=== PATIENT | male | born 1970 | race Caucasian/White ===

== ENCOUNTER → 2023-12-06 14:33 | Outpatient (REF) | payer BC, SELFPAY | LOC: RAD 14:33 | PROVIDERS: ATTENDING PHYSICIAN Physician Assistant | DX: M25.562 Pain in left knee (principal); M79.662 Pain in left lower leg; M25.552 Pain in left hip; M91.12 Juvenile osteochondrosis of head of femur [Legg-Calve-Perthes], left leg | CPT/HCPCS: 73502; 73564; 73590 ==

== ENCOUNTER 2025-01-16 07:28 | Inpatient (IN) | payer BC, SELFPAY ==
[2025-01-16] VITALS (10 sets, daily range): BP systolic 128–201; BP diastolic 79–116; BMI 32.6; BMI 31.7
--- NOTE | 2025-01-16 02:27 | ED.GENMED ---
History of Present Illness
<Shraddha Thomson PA-C - Last Filed: 01/16/25 06:28>
General
Chief Complaint: Musculo-Skeletal Complaint
Source: patient
Exam Limitations: none
Time Seen by Provider: 01/16/25 02:25
Nursing documentation reviewed up to this point in time: agreed with
History of Present Illness
History of Present Illness:
This is a 55-year-old male with a past medical history of GERD who presents emergency department today with concerns of left rib pain for the past few days. Patient reports that he was moving items out of his family member's house and doing a lot
of heavy lifting when he noted pain in his left anterior chest wall. He states that has been taking Tylenol has not been helping with his symptoms. Patient also notes that he has had intermittent shortness of breath with this recently as well. He
feels that the pain worsens when he takes a deep breath. He also notes some discomfort in the middle of his chest as well. Denies any dizziness lightheadedness or syncopal episodes. Denies any redness or swelling in his lower extremities. Denies
any recent long distance traveling recent hospitalizations. He denies any personal history of cardiac disease but states that his dad has had a heart attack but he is unsure at what age. Patient does not take any medication for his blood pressure.
Past History
<Shraddha Thomson PA-C - Last Filed: 01/16/25 06:28>
Past History
ED Past Medical History: GERD and Hypercholesterolemia
Social History
Tobacco: Non-smoker
Alcohol: None
Personal:
Living: with family
Employment: Employed ([employer], works from home)
Review of Systems
<Shraddha Thomson PA-C - Last Filed: 01/16/25 06:28>
Review of Systems
All Other Systems: ROS reviewed and negative except as documented in HPI and ROS
Phy Exam
<Shraddha Thomson PA-C - Last Filed: 01/16/25 06:28>
Physical Exam
Physical Exam:
General: Patient is well appearing and in no acute distress; non-toxic
Skin: Warm and dry, no rashes or lesions
Head: Normocephalic, atraumatic
Eyes: Sclera non-icteric. EOMs intact.
Cardiac: Tachycardia with regular rhythm, no murmurs
Peripheral Vascular: No lower extremity swelling or edema
Pulm: Normal respiratory effort, no wheezes, rales, rhonchi
Abdomen: No abdominal tenderness to palpation
Neuro: CN II-XII intact, no focal neurologic deficits.
Psychiatric: Appropriate mood and affect.
Course
<BERNABE Arciniega Last Filed: 01/16/25 06:28>
Orders/Labs/Results
Orders:
Orders
01/16/25 02:07
Electrocardiogram (*1) Urgent
Reason for Study: Abdominal Pain
EKG- Treatment ONCE
01/16/25 02:37
CR Ribs-left 3 Vw W/pa Chest Urgent
Comment:
Reason For Exam: left rib pain
01/16/25 02:38
Cardiac Monitoring- Treatment ONCE
01/16/25 02:39
Ibuprofen [Motrin] 600 mg PO NOW STA
01/16/25 02:58
Vital Signs- Treatment ONCE
Frequency: Once
01/16/25 03:32
Complete Blood Count/With Diff Urgent
Comprehensive Metabolic Panel Urgent
D-Dimer Urgent
Troponin I Urgent
01/16/25 04:35
CT Chest PE Study Urgent
Comment:
Reason For Exam: left sided chest pain, shortness of breath
01/16/25 05:38
Electrocardiogram (*1) Urgent
Reason for Study: Chest Pain
04/15/25 05:51
Add On- LAB Urgent
Tests Added?: pro-bnp
Troponin I Urgent
01/16/25 06:12
Heparin 8,500 units IV NOW STA
Pharmacy Request to Place See Dose Instructions PO NOW STA
Discontinue all Active Warfarin orders?: Yes
01/16/25 06:15
PTT Urgent
Comment: Obtain baseline before beginning heparin infusion if not already collected
Heparin 06540 Units/250 ml 25,000 units in 250 ml IV PER PROTOCOL
Weight to be used for heparin protocol in kilograms (kg):: 106
Protocol:: DVT/PE
PTT Goal Range to be used:: PTT 73 to 111 seconds
Order type:: Initial
INITIAL Infusion Dose (UNITS/KG/hr) & then follow protocol:: 18 units/kg/hr
Infusion Dose in UNITS/hr & then follow protocol (UNITS/hr):: 1,900
INFUSION RATE in mL/hr & then follow protocol (mL/hr):: 19
For DVT/PE algorithm, re-bolus for low PTT?: Yes
PTT less than or equal to 64 seconds:: Re-bolus 80 units/kg (max 10,000units). Increase by 400 units/hr
(+ 4mL/hr)
PTT 64.1 to 72.9 seconds:: Re-bolus 40 units/kg (max 5,000 units). Increase by 200 units/hr
(+ 2mL/hr)
PTT 73 to 111 seconds:: Target Range. No change in rate.
PTT 111.1 to 130.9 seconds:: Decrease rate by 200 units/hr (- 2 mL/hr)
PTT 131 to 199.9 seconds:: HOLD for 1 hr. Then decrease by 300 units/hr (- 3mL/hr)
PTT greater than or equal to 200 seconds:: HOLD for 2 hrs & Notify Provider. Then decrease by 400 units/hr
(- 4mL/hr)
Lab follow-up:: Each change, PTT q6h until 2 consecutive are therapeutic. Then
PTT daily.
Nursing to Place Non Medication Order As Directed
Physician Order: PTT 6 hours after initial start of Heparin infusion
01/16/25 06:20
Add On- LAB Urgent
Tests Added?: PTT
01/16/25 07:00
Flush (0.9% Sodium Chloride) [Flush (Nss)] See Dose Instructions IV PER PROTOCOL
Pharmacy Request to Place See Dose Instructions IV DIRECTED
Abnormal Lab Results
01/16/25
03:32
Absolute Monos (auto) 0.7 H 10^3/uL
(0.1-0.6)
D-Dimer 1.35 H ug/mlFEU
(0.00-0.50)
Glucose 118 H mg/dl
(70-99)
AST 60 H U/L
(17-59)
ALT 72 H U/L
(0-50)
Troponin I 0.075 H* ng/ml
01/16/25 03:32
01/16/25 03:32
Vital Signs
Initial and Last Documented VS:
Initial Vital Signs
Temp Pulse Resp BP Pulse Ox
97.9 F 116 26 201/116 99
01/16/25 01:47 01/16/25 01:47 01/16/25 01:47 01/16/25 01:47 01/16/25 01:47
Last Documented Vital Signs
Temp Pulse Resp BP Pulse Ox
97.9 F 78 18 142/95 97
01/16/25 01:47 01/16/25 06:00 01/16/25 06:00 01/16/25 04:31 01/16/25 06:00
Perezlt;Mynor Camacho, DO - Last Filed: 01/16/25 06:08>
Orders/Labs/Results
Orders:
Orders
01/16/25 02:07
Electrocardiogram (*1) Urgent
Reason for Study: Abdominal Pain
EKG- Treatment ONCE
01/16/25 02:37
CR Ribs-left 3 Vw W/pa Chest Urgent
Comment:
Reason For Exam: left rib pain
01/16/25 02:38
Cardiac Monitoring- Treatment ONCE
01/16/25 02:39
Ibuprofen [Motrin] 600 mg PO NOW STA
01/16/25 02:58
Vital Signs- Treatment ONCE
Frequency: Once
01/16/25 03:32
Complete Blood Count/With Diff Urgent
Comprehensive Metabolic Panel Urgent
D-Dimer Urgent
Troponin I Urgent
01/16/25 04:35
CT Chest PE Study Urgent
Comment:
Reason For Exam: left sided chest pain, shortness of breath
01/16/25 05:38
Electrocardiogram (*1) Urgent
Reason for Study: Chest Pain
01/16/25 05:51
Add On- LAB Urgent
Tests Added?: pro-bnp
Troponin I Urgent
01/16/25 06:12
Heparin 8,500 units IV NOW STA
Pharmacy Request to Place See Dose Instructions PO NOW STA
Discontinue all Active Warfarin orders?: Yes
01/16/25 06:15
PTT Urgent
Comment: Obtain baseline before beginning heparin infusion if not already collected
Heparin 08423 Units/250 ml 25,000 units in 250 ml IV PER PROTOCOL
Weight to be used for heparin protocol in kilograms (kg):: 106
Protocol:: DVT/PE
PTT Goal Range to be used:: PTT 73 to 111 seconds
Order type:: Initial
INITIAL Infusion Dose (UNITS/KG/hr) & then follow protocol:: 18 units/kg/hr
Infusion Dose in UNITS/hr & then follow protocol (UNITS/hr):: 1,900
INFUSION RATE in mL/hr & then follow protocol (mL/hr):: 19
For DVT/PE algorithm, re-bolus for low PTT?: Yes
PTT less than or equal to 64 seconds:: Re-bolus 80 units/kg (max 10,000units). Increase by 400 units/hr
(+ 4mL/hr)
PTT 64.1 to 72.9 seconds:: Re-bolus 40 units/kg (max 5,000 units). Increase by 200 units/hr
(+ 2mL/hr)
PTT 73 to 111 seconds:: Target Range. No change in rate.
PTT 111.1 to 130.9 seconds:: Decrease rate by 200 units/hr (- 2 mL/hr)
PTT 131 to 199.9 seconds:: HOLD for 1 hr. Then decrease by 300 units/hr (- 3mL/hr)
PTT greater than or equal to 200 seconds:: HOLD for 2 hrs & Notify Provider. Then decrease by 400 units/hr
(- 4mL/hr)
Lab follow-up:: Each change, PTT q6h until 2 consecutive are therapeutic. Then
PTT daily.
Nursing to Place Non Medication Order As Directed
Physician Order: PTT 6 hours after initial start of Heparin infusion
01/16/25 06:20
Add On- LAB Urgent
Tests Added?: PTT
01/16/25 07:00
Flush (0.9% Sodium Chloride) [Flush (Nss)] See Dose Instructions IV PER PROTOCOL
Pharmacy Request to Place See Dose Instructions IV DIRECTED
Abnormal Lab Results
01/16/25
03:32
Absolute Monos (auto) 0.7 H 10^3/uL
(0.1-0.6)
D-Dimer 1.35 H ug/mlFEU
(0.00-0.50)
Glucose 118 H mg/dl
(70-99)
AST 60 H U/L
(17-59)
ALT 72 H U/L
(0-50)
Troponin I 0.075 H* ng/ml
01/16/25 03:32
01/16/25 03:32
Vital Signs
Initial and Last Documented VS:
Initial Vital Signs
Temp Pulse Resp BP Pulse Ox
97.9 F 116 26 201/116 99
01/16/25 01:47 01/16/25 01:47 01/16/25 01:47 01/16/25 01:47 01/16/25 01:47
Last Documented Vital Signs
Temp Pulse Resp BP Pulse Ox
97.9 F 78 18 142/95 97
01/16/25 01:47 01/16/25 06:00 01/16/25 06:00 01/16/25 04:31 01/16/25 06:00
<Shraddha Thomson PA-C - Last Filed: 01/16/25 06:28>
MDM/Problems Addressed
Differential Diagnosis Includes:
Differentials include muscle strain, rib contusion, costochondritis, ACS, PE
MDM/Problems Addressed:
This is a 55-year-old male with a past medical history of GERD who presents emergency department today with concerns of left rib pain for the past few days. Patient reports that he was moving items out of his family member's house and doing a lot
of heavy lifting when he noted pain in his left anterior chest wall. He is tachycardic and acutely hypertensive upon arrival to the emergency department. His D-dimer was found to be elevated. CT scan of the chest reveals slightly irregular.
Lobar segmental PEs in the left lower lobe with possible small segmental PE in the right lower lobe as well with no evidence of right heart strain as well as a rounding filling defect in LV apex. Concerning for acute versus chronic PE with ACS,
heparin initiated, case reviewed with attending who also evaluated patient at bedside as well. Case discussed with house for admission.
<Shraddha Thomson PA-C - Last Filed: 01/16/25 06:28>
*Pulse Oximetry
Patient hypoxic: no
*EKG
Interpreted by ED Provider?: Yes
EKG Intrepretation Date: 01/16/25
Interpretation: abnormal
Comparison EKG: changes noted (New T wave inversion in lateral leads)
Heart Rate: 79
Rate: normal
Rhythm: sinus
[place]: normal axis
Interval: normal interval
*Critical Care Note
Total Time (30-74mins, 75-104mins- exclusive of procedures): Not Applicable
Data Reviewed
Review of Other/Old Records Reveals: Records (Reviewed ER physician documentation from 02/24/2022 patient seen for acute diverticulitis of the intestine)
Source: patient and records
<Shraddha Thomson PA-C - Last Filed: 01/16/25 06:28>
Patient Management
Discussion with other providers: Hospitalist
Escalation/DeEscalation of care consider admission/obs:
Admit indicated
ED Attending Note
<Shraddha Thomson PA-C - Last Filed: 01/16/25 06:28>
-
Portions of this chart may have been created with voice recognition software.� Occasional wrong word or��sound alike� substitutions may have occurred due to the inherent limitations of voice recognition software.
<Mynor Camacho DO - Last Filed: 01/16/25 06:08>
ED Attending Note
Patient seen and examined by attending physician: Yes
I performed the substantive portion of visit, reviewed & personally made and approve the management plan that is documented in note by myself or VALERIE.: Yes
ED Attending Note:
Seen with PA examined independently agree with assessment and plan pleuritic sharp left-sided pain moving boxes EKG noted Trope D-dimer noted will start on unfractionated heparin,
Discharge Plan
Departure
Patient Disposition: Admit
Date of Disposition: 01/16/25
Time of Disposition: 06:20
Admit to: Med/Surg
Presentation/result/management discussed w/ accepting MD/DO: Hospitalist
Patient with high blood pressure during this ER visit?: Yes
Condition: Fair
Discharge Problem:
Pulmonary embolism
Prescriptions:
No Action
omeprazole [Prilosec] 40 MG capsule,delayed release(DR/EC)
40 mg PO DAILY
levofloxacin 500 MG tablet
500 mg PO DAILY Qty: 10 0RF
metronidazole 500 MG tablet
500 mg PO Q8 Qty: 30 0RF
hydrocodone-acetaminophen 1 TABLET tablet
1 tab PO Q4HPRN PRN (Reason: severe pain) Qty: 10 0RF
Referrals:
Lor Sexton MD [Family Provider] -
Interventions
Interventions:
*Risk Screen - Suicide Last Done: 01/16/25 01:47
*General Assessment Last Done: 01/16/25 03:10
*Neglect/Abuse Screening Last Done: 01/16/25 01:47
*ED- Fall Risk Assessment Last Done: 01/16/25 03:10
*ED COVID-19 Vaccine History Last Done: 01/16/25 03:10
ED-Musculoskeletal Assessment Last Done: 01/16/25 03:38
Discharge Date and Time
Print Language: ARMENIAN
[2025-01-16] MEDS: MOTRIN 600 MG PO (03:07)
[2025-01-16 03:39] LABS: % Basophils 0.6 % (0-2); % Eosinophils 3.1 % (0-6); % Immature Granulocytes 0.3 % (0-0.5); Absolute Basophils 0.1 10^3/uL (0-0.2); Absolute Eosinophils 0.3 10^3/uL (0-0.7); Absolute Monocytes 0.7 10^3/uL (0.1-0.6); Hematocrit 47.1 % (39.0-52.0); Hemoglobin 16.2 g/dL (13.0-18.0); Mean Corp Hgb Conc. 34.4 g/dL (33.0-37.0); Mean Corpuscular Hgb 30.4 pg (27.0-31.0); Mean Corpuscular Volume 88.4 fL (80.0-94.0); Nucleated Red Blood Cells % 0 % (-); Platelet Count 209 10^3/uL (130-400); Red Blood Cell Count 5.33 10^6/uL (4.70-6.10); Red Cell Dist. Width 12.5 % (11.5-14.5); White Blood Cell Count 9.1 10^3/uL (4.8-10.8)
[2025-01-16 03:53] LABS: D-Dimer 1.35 ug/mlFEU (0.00-0.50)
[2025-01-16 04:04] LABS: ALT (SGPT) 72 U/L (0-50); AST (SGOT) 60 U/L (17-59); Albumin 4.7 g/dl (3.5-5.0); Alkaline Phosphatase 117 U/L (38-126); Blood Urea Nitrogen 15 mg/dl (9-20); Carbon Dioxide 25 mmol/L (22-30); Chloride 104 mmol/L (98-107); Estimated Creatinine Clearance > 125 ml/min; Glucose 118 mg/dl (70-99); Potassium 4.2 mmol/L (3.5-5.1); Sodium 140 mmol/L (135-145); Total Bilirubin 0.6 mg/dl (0.2-1.3); Total Protein 8.2 g/dl (6.3-8.2); eGFR > 60.00
[2025-01-16 04:30] LABS: Troponin I 0.075 ng/ml
[2025-01-16] MEDS: HEPARIN 8500 UNITS IV (06:30)
[2025-01-16] MEDS: HEPARIN 25000 UNITS/250 ML IV ×2 (06:33→20:18)
[2025-01-16] MEDS: FLUSH (NSS) 1 FLUSH IV (06:37)
--- NOTE | 2025-01-16 06:37 | HPS.HSE ---
Family Physician
-
Family Physician: Lor Sexton
Chief Complaint
-
Left-sided chest/rib pain
History of Present Illness
This is a 55-year-old with past medical history includes gastritis history of gallstones s/p cholecystectomy presenting to the emergency department with worsening left-sided chest pain.
Patient reported that few days ago he was traveling to [place] multiple times. He drove 6 hours home 2 days and 3 hours on 1 day [id number] to move furniture. After remove the patient developed left-sided pain which he thought was
musculoskeletal. He was able to manage without any significant shortness of breath or dyspnea on exertion exertion until about 2 days ago when he noted some minor rhinorrhea and cough as well as some shortness of breath which he attributed to upper
respiratory infection. He did not have any fevers or chills.
Today he started noticing more severe sharp pain on his left-sided axillary thoracic region. This was nonradiating. He felt that he might have pulled a muscle. However since it was not improving he said to come to the Emergency Department for
evaluation. Found to have a pulmonary embolus in the left lower lobe.
Patient denies family history of bleeding or clotting disorders. Other than the recent travels he had no other risk factors. There is a possible cold-like episode about 2 days ago and he was not tested for COVID. He denies any lower extremity
swelling. He denies any calf tenderness.
On arrival he was afebrile, blood pressure was 140/95 pulse rate 78 satting 98% on room air. CBC was completely normal. Electrolytes BUN/creatinine were normal. Glucose was normal. He had a ECG which showed normal sinus rhythm with T wave
inversions in the lateral leads. His troponin was 0.075. Repeat was 0.08.
Chest x-ray shows no rib fracture and no consolidation. CT of the chest to with PE protocol was positive for a left lower lobe pulmonary emboli, no cardiac strain. There was a cardiac filling defect in the LV.
Medical History
Past Medical History
Past Medical History: Reports GERD
Additional Past Medical History:
History of diverticulitis
Past Surgical History: Reports Cholecystectomy
Social History
Tobacco: Non-smoker
Alcohol: None
Drug: None
Personal:
Living: With Family
Employment: Employed
Family History
Family History: CAD
Allergies / Home Medications
Allergies reflects when Allergies were last updated in [employer].
Home Medications with original date entered in [employer]
Allergy/Medication List:
Allergies
Allergy/AdvReac Type Severity Reaction Status Date / Time
No Known Allergies Allergy Verified 01/16/25 01:50
Home Medications
omeprazole 40 mg capsule,delayed release (Prilosec) 40 mg PO DAILY 01/31/10
Review of Systems
-
History Source: Patient
Constitutional: Reports No Symptoms
EENT: Reports No Symptoms
Respiratory: Reports No Symptoms
Cardiac: Reports Chest Pain
Abdomen/GI: Reports No Symptoms
: Reports No Symptoms
Musculoskeletal: Reports No Symptoms
Skin: Reports No Symptoms
Neurological: Reports No Symptoms
Endocrine: Reports No Symptoms
Hematologic/Lymphatic: Reports No Symptoms
Psych: Reports No Symptoms
Physical Exam
Vital Signs
Vital Signs
Temp Pulse Resp BP Pulse Ox
97.9 F 78 18 142/95 97
01/16/25 01:47 01/16/25 06:00 01/16/25 06:00 01/16/25 04:31 01/16/25 06:00
Physical Exam
General: Well Developed, Well Nourished, No Apparent Distress and Comfortable
HEENT: NormoCephalic, Anicteric, Moist mucous membranes and Atraumatic
Respiratory: Clear
Cardiac: S1/S2 and Regular Rhythm
GI: Soft, Non Tender, Non Distended and Normal Bowel Sounds
Rectal: Deferred by Provider
Genito-urinary: Deferred by me
Musculoskeletal: No Clubbing, No Cyanosis and No Edema
Neuro: AO x 3 and Nonfocal/grossly intact
Hematologic/Lymphatic: No Lymphadenopathy
Psych: Calm
Laboratory Results
-
01/16/25 03:32
01/16/25 03:32
Laboratory Results
Total Bilirubin 0.6 mg/dl (0.2-1.3) 01/16/25 03:32
AST 60 U/L (17-59) H 01/16/25 03:32
ALT 72 U/L (0-50) H 01/16/25 03:32
Alkaline Phosphatase 117 U/L (38-126) 01/16/25 03:32
Troponin I 0.080 ng/ml H* 01/16/25 05:51
Data Reviewed
-
Diagnostic Radiology: Image Personally Visualized and interpreted
CT Scan: Report Reviewed by me
Medical Tests (Nuc Med, Echo, EKG etc): Image Personally Visualized and interpreted
Lab Data: Labs Reviewed by me
Old Records: Reviewed
Impression/Plan
-
IMPRESSION:
Pulmonary embolism with left-sided chest pain. Patient has a left lower lobe 12 pulmonary emboli. No RV strain on CT scan. Has slight elevation in troponin to 0.08. More prominent T wave inversions in the lateral leads compared to prior. He is
hemodynamically stable. He has no oxygen requirement. Patient complicated by a filling defect in the LV on CT scan.
PLAN:
Pulmonary embolus - Submassive by elevated troponin, well appearing patient, HD stable and not requiring oxygen. Pain well controlled.
- admit to telemetry
- given troponin and LV defect possibly thrombus, will continue on heparin gtt for now
- trend trops
- previus echo was normal 2 yrs ago, will repeat echo for LV evaluation and possibly may need bubble study
- cardiology consult for LV filling defect.
- check covid
- if no covid, then PE could have been provoked by the prolonged driving trips, will suggest some predisposition to clots and will need longer term ac, consider hematology consult
Code status - Full Code
[2025-01-16 07:12] LABS: APTT 25.2 Sec (23.4-35.0)
[2025-01-16 07:49] LABS: NT-proBNP 1480 pg/ml
[2025-01-16 08:12] LABS: COVID-19 Antigen Negative (Negative)
--- NOTE | 2025-01-16 09:05 | CARDSERVLU ---
Echocardiogram with [facility]ason completed after protocol screening completed. Allergies verified.
Patent IV site: _Left antecubital site clear____
IV site flushed with 0.9% NaCl pre and post administration.
Diluted bolus method utilized to enhance visualization of ventricular robles.
Total volume given: _3___ mL
Patient tolerated all procedures well without complications.
[2025-01-16] MEDS: PROTONIX 40 MG PO (09:31)
--- NOTE | 2025-01-16 09:49 | CON.CAR ---
Consultation
Consultation Request
Date/Time Consultation Requested: 01/16/25, 7am
Date/Time Consultation Performed: 01/16/25, 930am
Requesting Provider: Renetta
Performing Provider: Omid
Reason for Consultation: PE, elevated troponin
Medical History
-
Chief Complaint: chest pain
History of Present Illness:
55 yo male with PMH of obesity, GERD presents to ED with chest pain. Found to have acute PE. We are consulted for abnormal troponin, and possible LV filling defect on CT.
He has history of recent long car rides. Then developed chest pain, cough, SOB and presented to ED.
Past Medical History
Past Medical History: GERD and Other (obesity)
Past Surgical History: Cholecystectomy
Social History
Tobacco: Non-Smoker
Family History
Family History: CAD (grandfather) and Other (great aunt 'on blood thinner')
Allergies / Home Medications
Allergy/AdvReac Type Severity Reaction Status Date / Time
No Known Allergies Allergy Verified 01/16/25 01:50
�Medication �Instructions �Recorded �Confirmed �Type
biotin 10,000 mcg chewable tablet 10,000 mcg PO DAILY 01/16/25 01/16/25 History
(Hair, Skin and Nails (biotin))
therapeutic multivitamin 1 tab PO DAILY 01/16/25 01/16/25 History
Review of Systems
-
All other systems: Negative unless noted
Respiratory: Cough and Trouble Breathing
Cardiac: Chest Pain
Physical Exam
Vital Signs
Temp Pulse Resp BP Pulse Ox
98.2 F 88 24 153/88 97
01/16/25 09:14 01/16/25 07:00 01/16/25 07:00 01/16/25 07:00 01/16/25 07:00
Lab Results
01/16/25 03:32
01/16/25 03:32
Troponin I 0.080 ng/ml H* 01/16/25 05:51
Otk-L-Lgyupxpoaaw Pept 1480 pg/ml 01/16/25 05:51
Physical Exam
General: No Apparent Distress and Comfortable
HEENT: Normocephalic and Anicteric
Respiratory: Clear and Non Labored Respirations
Cardiac: S1/S2 (normal), Regular Rhythm, Murmur (none), Peripheral Edema (none), Calf Tenderness (none) and JVD (none)
Musculoskeletal: No Clubbing, No Cyanosis and No Edema
Skin: Warm and Dry
Neuro: AO x 3
Psych: Calm
Impression / Plan
-
55 yo male with PMH of obesity, GERD presents to ED with chest pain. Found to have acute PE. We are consulted for abnormal troponin, and possible LV filling defect on CT.
# Acute PE
-severe, threat to life, requiring hospital admission
-anticoagulation currently with heparin drip
-requires monitor of Hgb
-eventual transition to OAC
# LV filling defect
-echo with contrast to assess for LV thrombus
-if has both PE and LV thrombus, will need hypercoagulable work up
# Elevated troponin
-likely acute non-ischemic myocardial injury in setting of acute PE
-0.08
-trend to peak
-echo
# Elevated blood pressure
-trend: may have new diagnosis of HTN
# Obesity
CT chest 01/16/25
1. Positive for segmental and subsegmental emboli within the left lower lobe pulmonary arteries, and within a subsegmental right lower lobe pulmonary artery. No evidence of right heart strain.
2. Rounded filling defect near the LV apex, measuring 1.8 cm in diameter, new compared to prior CT abdomen and pelvis dated 02/24/2022. Consider echocardiogram for further characterization.
Data Reviewed
-
EKG: Tracing Personally Visualized and interpreted (NSR, anterolateral TWI) and Other (Tele: SR 90s)
CT Scan: Report Reviewed by me (1. Positive for segmental and subsegmental emboli within the left lower lobe pulmonary arteries, and within a subsegmental right lower lobe pulmonary artery. No evidence of right heart strain. 2. Rounded filling
defect near the LV apex, measuring 1.8 cm in diameter, new compared to prior CT abdomen )
Labs: Labs Reviewed by me
--- NOTE | 2025-01-16 10:31 | PTCARENOTE ---
Pt says all symptoms have resolved. Denies chest or rib pain. Breathing unlabored. VSS. Heparin gtt infusing at 1900 units/hr.
--- NOTE | 2025-01-16 11:51 | CON.ONC ---
Impression
Impression
evie PEs
left ventricle thrombus
recent car travel to and from [place] twice (3hr each way)
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
Plan
Plan
Discussed the need for anticoagulation, at least 3 months
Unclear if recent car travel could have provoked his PEs, though etiology of LV thrombus is unknown (no evidence for FL, EF is normal)
Will check LE dopplers and antiphosholipid Ab testing (which will take several days)
Can transition to eliquis when nearing discharge, though would switch to warfarin if testing suggest APL syndrome
Outpatient heme f/u in ~3 months to complete thrombophilia testing and consider duration of therapy
We'll follow along while hospitalized
Patient History
History of Present Illness
This is a 55yo who presented early this am with left sided chest and flank pain, and mild dyspnea.
He had driven (3hr) back and forth to [place] twice last week, helping his aunt move heavy furniture and pack up after the of his uncle. He denies any leg pain or swelling.
CTA showed bilateral PEs and a 1.8cm thrombus in the LV apex, which was confirmed on echocardiogram. No RV dysfunction.
He's been started on heparin.
He has a remote h/o left hip surgery in childhood due to Rhsk-Minjd-Kppmnth disease.
He's UTD on colonoscopy, 2018.
He's sedentary. His PMD is Lady Sexton.
COVID negative.
Past-Medical/Surgical History
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
SH - non smoker, drinks no alcohol,
FH - blood clot in aunt (arterial?)
Patient Medication
�Medication �Instructions �Recorded �Confirmed �Last Taken �Type
biotin 10,000 mcg chewable tablet 10,000 mcg PO DAILY 01/16/25 01/16/25 Unknown History
(Hair, Skin and Nails (biotin))
therapeutic multivitamin 1 tab PO DAILY 01/16/25 01/16/25 Unknown History
Active Medications
Generic Name Dose Route Start Last Admin
Trade Name Freq PRN Reason Stop Dose Admin
Acetaminophen 650 mg 01/16/25 08:03
Acetaminophen 325 Mg Tablet PO 02/13/25 08:02
Q4HPRN PRN
mild pain/temp > 100.4 F
Heparin Sodium 8,500 units 01/16/25 06:24
Heparin 80 Units/Kg Rebolus-Do Not Discard IV 02/13/25 06:23
PRN PRN
PTT < OR = 64 seconds
Heparin Sodium 4,200 units 01/16/25 06:25
Heparin 40 Units/Kg Rebolus-Do Not Discard IV 02/13/25 06:24
PRN PRN
PTT = 64.1 to 72.9 seconds
Hydromorphone HCl 0.5 mg 01/16/25 08:03
Hydromorphone 0.5 Mg/0.5 Ml Syringe IV 01/30/25 08:02
Q4HPRN PRN
severe pain
Heparin Sodium 25,000 units in 250 mls @ 0 mls/hr 01/16/25 06:15 01/16/25 06:33
Heparin 58864 Units/250 Ml IV 250 mls
PER PROTOCOL VICTOR M Administration
Protocol
Per Protocol
Morphine Sulfate 2 mg 01/16/25 08:03
Morphine 2 Mg/Ml Syringe IV 01/30/25 08:02
Q4HPRN PRN
moderate pain
Pantoprazole Sodium 40 mg 01/16/25 08:03 01/16/25 09:31
Pantoprazole 40 Mg Delayed Release Tablet PO 02/13/25 08:02 40 mg
DAILY VICTOR M Administration
Sodium Chloride 0 flush 01/16/25 07:00 01/16/25 06:37
Sodium Chloride 0.9% (Flush) Syringe IV 02/13/25 06:59 1 flush
PER PROTOCOL VICTOR M Administration
Physical Exam
-
General: Well Developed, Well Nourished and No Apparent Distress
HEENT: Negative Jaundice
Cardiology: Normal Sinus Rhythm
GI: Soft and Normal Bowel Sounds
Musculoskeletal: No Clubbing, No Cyanosis and No Edema
Extremities: No C/C/E
Neurology: Non Focal, No Lateralizing Symptoms and No Word Finding Difficulty
Skin: Warm and Dry
Psych: Calm and Intact Judgement/Insight
Labs
Lab Results
WBC 9.1 10^3/uL (4.8-10.8) 01/16/25 03:32
RBC 5.33 10^6/uL (4.70-6.10) 01/16/25 03:32
Hgb 16.2 g/dL (13.0-18.0) 01/16/25 03:32
Hct 47.1 % (39.0-52.0) 01/16/25 03:32
MCV 88.4 fL (80.0-94.0) 01/16/25 03:32
MCH 30.4 pg (27.0-31.0) 01/16/25 03:32
MCHC 34.4 g/dL (33.0-37.0) 01/16/25 03:32
RDW 12.5 % (11.5-14.5) 01/16/25 03:32
Plt Count 209 10^3/uL (130-400) 01/16/25 03:32
MPV 10.0 fL (7.4-10.4) 01/16/25 03:32
Abs Immat Gran (auto) 0.0 10^3/uL (0-0.05) 01/16/25 03:32
Absolute Neuts (auto) 6.0 10^3/uL (1.4-6.5) 01/16/25 03:32
Absolute Lymphs (auto) 2.0 10^3/uL (1.2-3.4) 01/16/25 03:32
Absolute Monos (auto) 0.7 10^3/uL (0.1-0.6) H 01/16/25 03:32
Absolute Eos (auto) 0.3 10^3/uL (0-0.7) 01/16/25 03:32
Absolute Basos (auto) 0.1 10^3/uL (0-0.2) 01/16/25 03:32
Immature Gran % 0.3 % (0-0.5) 01/16/25 03:32
Neutrophils % 66.0 % (42.2-75.2) 01/16/25 03:32
Lymphocytes % 22.0 % (20.5-51.1) 01/16/25 03:32
Monocytes % 8.0 % (1.7-9.3) 01/16/25 03:32
Eosinophils % 3.1 % (0-6) 01/16/25 03:32
Basophils % 0.6 % (0-2) 01/16/25 03:32
Creatinine 0.8 mg/dL (0.7-1.3) 01/16/25 03:32
Vital Signs
Vital Signs
Temp Pulse Resp BP Pulse Ox
98.2 F 88 24 153/88 98
01/16/25 09:14 01/16/25 07:00 01/16/25 07:00 01/16/25 07:00 01/16/25 10:28
[2025-01-16 12:28] LABS: APTT 102.2 Sec (23.4-35.0)
[2025-01-16 12:45] LABS: Troponin I 0.067 ng/ml
--- NOTE | 2025-01-16 13:19 | W.PN.HOSP.TC ---
Today's Communication/Plan
-
Lower extremity Doppler pending
Assessment / Plan
Assessment / Plan
Impression:
Patient is a pleasant 55 years old with past medical history for gallstone and gastritis came to the ER with worsening left-sided chest pain found to have bilateral PE and also evidence of LV thrombosis, echocardiogram done which confirmed LV
thrombosis, seen by cardiology and hematology.
Currently on heparin drip.
Assessment/plan
Acute submassive PE.
Patient presented with chest pain.
Elevated troponin.
Elevated BNP.
Hemodynamically stable not requiring oxygen.
Chest pain improved.
Started on heparin drip.
Hematology consulted, consider Eliquis on discharge.
Follow-up with hematology as OP
Hypercoagulable workup pending
Bilateral extremity Doppler pending
LV thrombus:
Echocardiogram shows:
Normal biventricular size and systolic function without regional wall motion
abnormality. Estimated LVEF 55-60%.
LV apical clot approximately (1.7cm x 1.3cm).
Normal right ventricular size and function.
Trace tricuspid regurgitation. Normal PASP.
Appreciate cardiology input.
Continue anticoagulation
CODE STATUS: Full code
DVT prophylaxis: Heparin
Diet: Regular diet
Total time spent on today's encounter was 65 minutes which included time spent in counseling the patient/family regarding diagnosis and treatment plan as listed above, goals of care, and symptom management. Case was discussed with nursing staff,
specialists, and care coordinators/case management. All labs and imaging personally reviewed by me. Remainder the time spent in detailed review of previous records, lab data, imaging, and other medical provider documentation.
Anticipated Discharge: Within 24 hours
Subjective/Interval History
-
Date of Service: January 16, 2025
Patient seen and examined at bedside, denies any chest pain or shortness of breath, no abdominal pain, no nausea, no vomiting, no diarrhea or constipation.
Discussed echo result with the patient.
Hematology consulted.
Objective Data
-
Labs:
Laboratory Results
01/16/25 01/16/25 01/16/25
03:32 06:15 12:07
WBC 9.1
Hgb 16.2
Hct 47.1
Plt Count 209
APTT 25.2 Cancelled 102.2 H
Sodium 140
Potassium 4.2
Chloride 104
Carbon Dioxide 25
BUN 15
Creatinine 0.8
Glucose 118 H
Calcium 9.0
Total Bilirubin 0.6
AST 60 H
ALT 72 H
Alkaline Phosphatase 117
01/16/25
18:30
WBC
Hgb
Hct
Plt Count
APTT Pending
Sodium
Potassium
Chloride
Carbon Dioxide
BUN
Creatinine
Glucose
Calcium
Total Bilirubin
AST
ALT
Alkaline Phosphatase
Vital Signs:
Vital Signs
Temp Pulse Resp BP Pulse Ox
97.9 F 83 16 166/98 98
01/16/25 13:02 01/16/25 13:02 01/16/25 13:02 01/16/25 13:02 01/16/25 13:02
Physical Exam
-
General: Well Developed, Well Nourished, No Apparent Distress and Comfortable
HEENT: Normocephalic, Atraumatic, Moist Mucous Membranes, No Ptosis, PERRLA and Nose Appears Normal
Respiratory: Clear to Auscultation and Non Labored Respirations
Cardiac: Regular Rhythm and S1/S2
Breast: Deferred by me
GI: Soft, Nontender, Nondistended and Normal Bowel Sounds
Genito-urinary: No Costovertebral Tender
Musculoskeletal: No Clubbing, No Cyanosis and No Edema
Skin: Warm
Neuro: Awake, Alert, Oriented, AO x 3 and No Motor Deficits
Psych: Calm
Data Reviewed
-
Diagnostic Radiology: Image personally visualized and interpreted and Report Reviewed by me
CT Scan: Image personally visualized and interpreted and Report Reviewed by me
Ultrasound: Image personally visualized and interpreted and Report Reviewed by me
MRI: Image personally visualized and interpreted and Report Reviewed by me
Medical Tests (Nuc Med, Echo etc): Image personally visualized and interpreted and Report Reviewed by me
Labs: Labs Reviewed by me
Old Records: Reviewed
[2025-01-16] MEDS: NORVASC 5 MG PO (14:59)
[2025-01-16 19:08] LABS: APTT 87.4 Sec (23.4-35.0)
[2025-01-17 03:00] VITALS: BP 129/84
[2025-01-17 06:40] LABS: Hematocrit 44.7 % (39.0-52.0); Hemoglobin 15.8 g/dL (13.0-18.0); Mean Corp Hgb Conc. 35.3 g/dL (33.0-37.0); Mean Corpuscular Hgb 30.6 pg (27.0-31.0); Mean Corpuscular Volume 86.5 fL (80.0-94.0); Mean Platelet Volume 9.8 fL (7.4-10.4); Platelet Count 228 10^3/uL (130-400); Red Blood Cell Count 5.17 10^6/uL (4.70-6.10); Red Cell Dist. Width 12.6 % (11.5-14.5); White Blood Cell Count 13.2 10^3/uL (4.8-10.8)
[2025-01-17 06:45] LABS: APTT 80.3 Sec (23.4-35.0)
[2025-01-17 07:54] LABS: Blood Urea Nitrogen 13 mg/dl (9-20); Calcium 9.2 mg/dl (8.4-10.2); Carbon Dioxide 22 mmol/L (22-30); Chloride 106 mmol/L (98-107); Estimated Creatinine Clearance > 125 ml/min; Glucose 102 mg/dl (70-99); Potassium 4.3 mmol/L (3.5-5.1); Sodium 140 mmol/L (135-145); eGFR > 60.00
--- NOTE | 2025-01-17 08:02 | W.PN.ONC2 ---
Today's Communication / Plan
-
Transition to Eliquis (or Xarelto depending on insurance coverage)
Eliquis 10 mg PO BID x 7 days, then 5 mg PO BID x 3 mo.
If Anticardiolipin Ab + (might take 5 days for results), might need to switch to warfarin. Discussed. He will be discharged by then.
after 3-6 mo...intermediate Eliquis would be 2.5 mg Po BID
F/U PCP Dr. Lor Sexton post D/C; heme F/U closer to 3 mo.
Impression
Impression
Unprovoked B/L PEs
left ventricle thrombus
recent car travel to [place] from [place] twice (3hr each way)
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
Fam Hx arterial and venous TE disease
Plan
Plan
Discussed the need for anticoagulation, at least 3 months
Unclear if recent car travel could have provoked his PEs, though etiology of LV thrombus is unknown (no evidence for AK, EF is normal)
LE dopplers NEG; Awaiting antiphosholipid Ab testing (which will take several days)
Can transition to eliquis when nearing discharge.
Outpatient heme f/u in ~3 months to complete thrombophilia testing and consider duration of therapy
Suspect he will need lifelong prophylactic anticoagulant Tx as thrombosis was unprovoked.
Subjective/Objective
Chief Complaint
ACS Heme Onc Progress
Subjective
Feels better this AM. also at bedside. Reviewed outpatient post D/C plan with both.
Vital Signs:
Vital Signs
Temp Pulse Resp BP Pulse Ox
97.3 F 72 16 129/84 96
01/17/25 03:00 01/17/25 03:00 01/17/25 03:00 01/17/25 03:00 01/17/25 03:00
Lab Results:
Laboratory Data
WBC 13.2 10^3/uL (4.8-10.8) H 01/17/25 06:10
Hgb 15.8 g/dL (13.0-18.0) 01/17/25 06:10
Plt Count 228 10^3/uL (130-400) 01/17/25 06:10
APTT 80.3 Sec (23.4-35.0) H 01/17/25 06:10
eGFR > 60.00 01/17/25 06:10
LE Doppler Neg DVT B/L
Physical Exam
Cardiology: S1 and S2
Pulmonary: Clear
Extremities: No C/C/E
[2025-01-17] MEDS: PROTONIX 40 MG PO (08:06)
[2025-01-17] MEDS: NORVASC 5 MG PO (08:07)
[2025-01-17 08:15] VITALS: BP 135/85
--- NOTE | 2025-01-17 09:19 | W.PN.CD ---
Today's Communication / Plan
-
Hypercoagulable workup per heme-onc
CM to [facility]
Will need repeat echocardiogram with contrast in 3-6 months
Consider stopping amlodipine (normal home BPs)
Our office will call him to schedule follow-up.
Impression / Plan
-
55 yo male with PMH of obesity, GERD presents to ED with chest pain. Found to have acute PE. We are consulted for abnormal troponin and LV thrombus on echo.
# Acute intermediate risk PE
-severe, threat to life, requiring hospital admission. Elevated troponin and BNP.
-anticoagulation currently with heparin drip
-requires frequent monitoring of Hgb and PTT
-eventual transition to OAC (will ask case management to farhat)
# LV thrombus
- TTE 01/16/2025: LVEF 55-60%, LV apical clot (1.7 cm x 1.3 cm), normal RV, trace TR, normal PASP
- OAC as above
- Hypercoagulable workup per heme-onc
- Will need repeat echocardiogram with contrast in 3-6 months
# Elevated troponin
-likely acute non-ischemic myocardial injury in setting of acute PE
-peak 0.08
# Elevated blood pressure
- Reports normal BPs at home. Checks frequently.
- May not need amlodipine.
# Obesity
Subjective: Feels like he can take a deep breath in today which was not the case before.
Physical Exam
Vital Signs/Labs
Vital Signs
Temp Pulse Resp BP Pulse Ox
98.9 F 81 16 135/85 96
01/17/25 08:15 01/17/25 08:15 01/17/25 08:15 01/17/25 08:15 01/17/25 08:15
01/16/25 01/17/25 01/18/25
06:59 06:59 06:59
Actual Weight 233 lb 11.04 oz 226 lb 14.4 oz
01/17/25 06:10
01/17/25 06:10
APTT 80.3 Sec (23.4-35.0) H 01/17/25 06:10
01/16/25
05:51
Klp-O-Szibszoynat Pept 1480
LAB Results
01/16/25 01/16/25 01/16/25
03:32 05:51 12:07
Troponin I 0.075 H* 0.080 H* 0.067 H*
Physical Exam
Constitutional: No acute distress and Comfortable
Cardiovascular: Rhythm & rate is regular, Pedal edema is absent, S1S2 is normal and Murmur/rub/gallop absent
Respiratory: Respiratory effort normal and Lungs clear to auscul.
Neuro/Psych: AO x 3
Data Reviewed
-
Date of Service: January 17, 2025
Medical Decision Making: Reviewed Test Results, Independent Historian Assessment, Test Interpretation and Review of Case with other Provider
EKG: Tracing Personally Visualized and interpreted
Echo: Report Reviewed by me
Labs: Labs Reviewed by me
--- NOTE | 2025-01-17 10:35 | W.PN.HOSP.TC ---
Today's Communication/Plan
-
Discharge home
Assessment / Plan
Assessment / Plan
Impression:
Patient is a pleasant 55 years old with past medical history for gallstone and gastritis came to the ER with worsening left-sided chest pain found to have bilateral PE and also evidence of LV thrombosis, echocardiogram done which confirmed LV
thrombosis, seen by cardiology and hematology.
Currently on heparin drip.
Will be started on Eliquis 10 mg twice daily for 7 days then 5 mg twice daily after.
Co-pay for Eliquis is $10.
Patient will be discharged home today.
Assessment/plan
Acute submassive PE.
Patient presented with chest pain.
Elevated troponin.
Elevated BNP.
Hemodynamically stable not requiring oxygen.
Chest pain improved.
Started on heparin drip.
Hematology consulted, consider Eliquis on discharge.
Follow-up with hematology as OP
Hypercoagulable workup pending
Bilateral extremity Doppler negative.
01/17
Will be started on Eliquis 10 mg twice daily for 7 days then 5 mg twice daily after.
Co-pay for Eliquis is $10.
Patient will be discharged home today.
LV thrombus:
Echocardiogram shows:
Normal biventricular size and systolic function without regional wall motion
abnormality. Estimated LVEF 55-60%.
LV apical clot approximately (1.7cm x 1.3cm).
Normal right ventricular size and function.
Trace tricuspid regurgitation. Normal PASP.
Appreciate cardiology input.
Continue anticoagulation
01/17
Will be discharged on eliquis.
Traniset Hypertension
Transient episodes of hypertension on 01/16.
Normalized.
Started low-dose Norvasc.
Discussed with cardiology will hold antihypertensive medications for now and follow-up as OP
CODE STATUS: Full code
DVT prophylaxis: Heparin
Diet: Regular diet
Total time spent on today's encounter was 65 minutes which included time spent in counseling the patient/family regarding diagnosis and treatment plan as listed above, goals of care, and symptom management. Case was discussed with nursing staff,
specialists, and care coordinators/case management. All labs and imaging personally reviewed by me. Remainder the time spent in detailed review of previous records, lab data, imaging, and other medical provider documentation.
Anticipated Discharge: Today
Subjective/Interval History
-
Date of Service: January 17, 2025
Patient seen and examined at bedside, denies any chest pain or shortness of breath, no abdominal pain, no nausea, no vomiting, no diarrhea or constipation.
Discussed with at bedside, will start Eliquis
Objective Data
-
Labs:
Laboratory Results
01/17/25
06:10
WBC 13.2 H
Hgb 15.8
Hct 44.7
Plt Count 228
APTT 80.3 H
Sodium 140
Potassium 4.3
Chloride 106
Carbon Dioxide 22
BUN 13
Creatinine 0.8
Glucose 102 H
Calcium 9.2
Vital Signs:
Vital Signs
Temp Pulse Resp BP Pulse Ox
98.9 F 81 16 135/85 96
01/17/25 08:15 01/17/25 08:15 01/17/25 08:15 01/17/25 08:15 01/17/25 08:15
I&O
01/16/25 01/17/25 01/18/25
06:59 06:59 06:59
Intake Total 960 / 960
Balance 960 / 960
Physical Exam
-
General: Well Developed, Well Nourished, No Apparent Distress and Comfortable
HEENT: Normocephalic, Atraumatic, Moist Mucous Membranes, No Ptosis, PERRLA and Nose Appears Normal
Respiratory: Clear to Auscultation and Non Labored Respirations
Cardiac: Regular Rhythm and S1/S2
Breast: Deferred by me
GI: Soft, Nontender, Nondistended and Normal Bowel Sounds
Genito-urinary: No Costovertebral Tender
Musculoskeletal: No Clubbing, No Cyanosis and No Edema
Skin: Warm
Neuro: Awake, Alert, Oriented, AO x 3 and No Motor Deficits
Psych: Calm
Data Reviewed
-
Diagnostic Radiology: Image personally visualized and interpreted and Report Reviewed by me
CT Scan: Image personally visualized and interpreted and Report Reviewed by me
Ultrasound: Image personally visualized and interpreted and Report Reviewed by me
MRI: Image personally visualized and interpreted and Report Reviewed by me
Medical Tests (Nuc Med, Echo etc): Image personally visualized and interpreted and Report Reviewed by me
Labs: Labs Reviewed by me
Old Records: Reviewed
[2025-01-17] MEDS: ELIQUIS 10 MG PO (10:55)
[2025-01-17 11:15] VITALS: BP 133/73
--- NOTE | 2025-01-17 11:21 | CM ---
CM met with Dmitriy and his to complete IA. Dmitriy came to ED due to pain in his left side which he initially thought was muscular, but as pain continued to increase, he came to ED for evaluation; found to have bilateral PE and also evidence of
LV thrombosis. Pt to take Eliquis as directed; CM provided 30 day copay card as well as $10 copay card for use after the 30 days. Pt and understand that the $10 copay card needs to be activated; instructions provided.
Dmitriy is (I) amb and adls at baseline; lives with his in a condo with no entry steps; works multimedia designer.
Plan for f/u with PCP within 2 weeks, and will see Medical Cost Consultant in April.
Plan: Discharge to home with no needs for care coordination at this time.
--- NOTE | 2025-01-17 11:23 | W.DCSUMMARY ---
Discharge Summary
Discharge Data
Date of Admission: 01/16/25
Date of Discharge: 01/17/25
-
Pending Results: No
Hospital Course
Hospital course
Patient is a pleasant 55 years old with past medical history for gallstone and gastritis came to the ER with worsening left-sided chest pain found to have bilateral PE and also evidence of LV thrombosis, echocardiogram done which confirmed LV
thrombosis, seen by cardiology and hematology.
Currently on heparin drip.
Will be started on Eliquis 10 mg twice daily for 7 days then 5 mg twice daily after.
Co-pay for Eliquis is $10.
Patient will be discharged home today.
During hospitalization patient was treated from the [facility]
Acute submassive PE.
Patient presented with chest pain.
Elevated troponin.
Elevated BNP.
Hemodynamically stable not requiring oxygen.
Chest pain improved.
Started on heparin drip.
Hematology consulted, consider Eliquis on discharge.
Follow-up with hematology as OP
Hypercoagulable workup pending
Bilateral extremity Doppler negative.
01/17
Will be started on Eliquis 10 mg twice daily for 7 days then 5 mg twice daily after.
Co-pay for Eliquis is $10.
Patient will be discharged home today.
LV thrombus:
Echocardiogram shows:
Normal biventricular size and systolic function without regional wall motion
abnormality. Estimated LVEF 55-60%.
LV apical clot approximately (1.7cm x 1.3cm).
Normal right ventricular size and function.
Trace tricuspid regurgitation. Normal PASP.
Appreciate cardiology input.
Continue anticoagulation
01/17
Will be discharged on eliquis.
Traniset Hypertension
Transient episodes of hypertension on 01/16.
Normalized.
Started low-dose Norvasc.
Discussed with cardiology will hold antihypertensive medications for now and follow-up as OP
CODE STATUS: Full code
DVT prophylaxis: Heparin
Diet: Regular diet
Total time spent on today's encounter was 40 minutes which included time spent in counseling the patient/family regarding diagnosis and treatment plan as listed above, goals of care, and symptom management. Case was discussed with nursing staff,
specialists, and care coordinators/case management. All labs and imaging personally reviewed by me. Remainder the time spent in detailed review of previous records, lab data, imaging, and other medical provider documentation.
Anticipated Discharge: Today
Discharge Plan
-
Patient Disposition: Home (Routine Discharge)
Discharge Diagnosis/Procedures: Acute pulmonary embolism.
Left ventricle thrombus
Condition: Good
Diet: As tolerated
Activity: As tolerated
Referrals:
Nichole Russo CRNP [Specified Professional Personl] - 04/20/25 10:40 am
Lor Sexton MD [Family Provider] -
Prescriptions:
New
Eliquis 5 mg tablet
5 mg PO DIRECTED Qty: 74 0RF
Rx Instructions:
Take 10 mg twice daily for 7 days then 5 mg twice daily
Eliquis 5 mg tablet
5 mg PO BID Qty: 60 2RF
Rx Instructions:
to be filled after one month 02/16/2025
Continued
therapeutic multivitamin Tablet
1 tab PO DAILY
Hair, Skin and Nails (biotin) 10,000 mcg Tablet,Chewable
10,000 mcg PO DAILY
Discharge Orders:
Discharge Patient (As Directed); Ordered 01/17/25
Ordered By: Jarrett Garcia
Discharge Date and Time
Discharge Date/Time: 01/17/25 11:16
Print Language: SETSWANA
[2025-01-19 01:48] LABS: Beta-2-Glycoprotein I Ab. IgG <10 SGU (<=20); Beta-2-Glycoprotein I Ab. IgM <10 SMU (<=20)
[2025-01-19 08:21] LABS: Cardiolipin IgA Antibody <10 APL (<=11); Cardiolipin IgM Antibody <10 MPL (<=12); Cardiolipin Igg Antibody <10 GPL (<=14)
== END 2025-01-17 11:16 | disposition home or self-care (01) | DRG 176 ==
LOC: 3 WEST ACU 07:28
PROVIDERS: Nurse Practitioner Gerontology; Physician Assistant; ADMITTING PHYSICIAN Internal Medicine; ATTENDING PHYSICIAN General Practice; CONSULT PHYSICIAN Internal Medicine; CONSULT PHYSICIAN Internal Medicine Hematology & Oncology; EMERGENCY PHYSICIAN Emergency Medicine; FAMILY PHYSICIAN Family Medicine
DX: I26.99 Other pulmonary embolism without acute cor pulmonale (principal); I51.3 Intracardiac thrombosis, not elsewhere classified; K21.9 Gastro-esophageal reflux disease without esophagitis; Z90.49 Acquired absence of other specified parts of digestive tract; I11.9 Hypertensive heart disease without heart failure; E66.9 Obesity, unspecified; Z68.31 Body mass index [BMI] 31.0-31.9, adult; E78.00 Pure hypercholesterolemia, unspecified; K76.0 Fatty (change of) liver, not elsewhere classified; Z82.49 Family history of ischemic heart disease and other diseases of the circulatory system; Z11.52 Encounter for screening for COVID-19
CPT/HCPCS: 71101; 71275; 80048; 80053; 83880; 84484; 85025; 85027; 85379; 85610; 85613; 85730; 86146; 86147; 87811; 93005; 93306; 93970; 96374; 99285; Q9950; Q9967

== ENCOUNTER → 2025-04-30 12:56 | Outpatient (REF) | payer BC, SELFPAY | LOC: RCS 12:56 | PROVIDERS: ATTENDING PHYSICIAN Nurse Practitioner Gerontology; FAMILY PHYSICIAN Family Medicine | DX: I51.3 Intracardiac thrombosis, not elsewhere classified (principal) | CPT/HCPCS: 93308; Q9950 ==

== ENCOUNTER → 2025-06-11 08:24 | Outpatient (REF) | payer BC, SELFPAY ==
[2025-06-13 22:16] LABS: Beta-2-Glycoprotein I Ab. IgG <10 SGU (<=20); Beta-2-Glycoprotein I Ab. IgM <10 SMU (<=20)
== END ==
LOC: REG 08:24
PROVIDERS: ATTENDING PHYSICIAN Internal Medicine Hematology & Oncology; FAMILY PHYSICIAN Family Medicine
DX: I26.99 Other pulmonary embolism without acute cor pulmonale (principal)
CPT/HCPCS: 36415; 81240; 81241; 85300; 85306; 85610; 85613; 85730; 86146; 86147